=== PATIENT | female | born 1950 | race Caucasian/White ===

== ENCOUNTER 2018-03-13 18:46 | Emergency (ER) | payer OTHER ==
[2018-03-13] MEDS ORDERED: IBUPROFEN 600 MG TAB PO ONE (19:52)
--- NOTE | 2018-03-13 20:04 | EDPHY ---
H & P Time Seen by Provider: 03/13/18 19:50 HPI/ROS: Chief complaint: Nose injury History of present illness: This is a 67-year-old female who presents to the emergency department for evaluation of a nose injury. Patient states she walked into a glass window. She struck her nose against it. She was knocked to the ground. There was no loss of consciousness. Since then she has had pain and swelling to the nose. Slight deformity noted. No bloody nose. She denies further injury, no headache, neck pain or pain elsewhere in the body. No neurologic symptoms such as paresthesias, weakness or paralysis or bowel or bladder dysfunction. Smoking Status: Never smoked Physical Exam: General Appearance: Alert, nontoxic. Eyes: Pupils equal and round no injection. ENT: No hemotympanum, no christian sign, no raccoon eyes. There is no epistaxis noted. Respiratory: Chest is non tender, lungs are clear to auscultation. Cardiac: regular rate and rhythm Musculoskeletal: Edema to the nose with slight left lateral deviation. The area is tender. The rest of the face, head are nontender. Neck is supple and non tender. Extremities have full range of motion and are non tender. Skin: No open wounds to the nose. Constitutional: Initial Vital Signs Temperature (C) 36.5 C 03/13/18 18:58 Heart Rate 86 03/13/18 18:58 Respiratory Rate 16 03/13/18 18:58 Blood Pressure 118/80 03/13/18 18:58 O2 Sat (%) 94 03/13/18 18:58 O2 Delivery Mode Room Air Allergies/Adverse Reactions: No Known Allergies Allergy (Unverified 03/13/18 18:58) Home Medications: Medication Instructions Recorded Cymbalta 03/13/18 MDM/Departure - MDM Medications Given: Discontinued Medications Ibuprofen (Motrin) 600 mg PO EDNOW ONE Stop: 03/13/18 19:53 Last Admin: 03/13/18 20:01 Dose: 600 mg ED Course/Re-evaluation: Patient is seen under the supervision of my secondary supervising physician Dr. Isabelle Martínez. Patient presents to the emergency department for an injury to her nose. By history and physical exam no evidence of further injury. A suspected nasal fracture. I have discussed imaging studies with her. Do not believe they are warranted this time this will affect immediate Care. She is returning home to [place] tomorrow. I have asked to follow up with a plastic surgeon for further evaluation and care. She states she has a plastic surgeon will make an appointment. Home care including the use of ibuprofen and ice is discussed. She is given return precautions. - Depart Disposition: Home, Routine, Self-Care Clinical Impression: Nasal fracture Qualifiers: Encounter type: initial encounter Fracture type: closed Qualified Code(s): S02.2XXA - Fracture of nasal bones, initial encounter for closed fracture Condition: Good Instructions: Nasal Fracture (ED) Additional Instructions: Please follow-up with a plastic surgeon next week back home in [place] Apply ice to the injury, 20 min on, 3 times daily for the next 3 days Ibuprofen 600 mg 3 times a day for the next 2-3 days for pain If symptoms worsen or new symptoms develop return to the closest emergency department for recheck Referrals: NONE *PRIMARY CARE P,. [Primary Care Provider] - As per Instructions Andrei Plata MD [Medical Doctor] - As per Instructions
[2018-03-13 20:16] VITALS: BP 115/81
== END 2018-03-13 20:16 | disposition home or self-care (01) ==
DX: S02.2XXA Fracture of nasal bones, initial encounter for closed fracture (principal); W25.XXXA Contact with sharp glass, initial encounter; Y99.8 Other external cause status; Y93.89 Activity, other specified